=== PATIENT | female | born 1985 | race Caucasian/White ===

== ENCOUNTER 2020-09-24 13:50 | Emergency (ER) | payer MEDICAID ==
[~2020-09-24] VITALS: Ht 154.9 cm; Wt 59.0 kg
[2020-09-24 14:01] VITALS: BP_SYST 129
--- NOTE | 2020-09-24 14:57 | NUR ---
Patient triaged and placed in waiting room. VSS and patient appears in no acute distress at this time. Accompanied by self , awaiting available bed, and MD notified of need for MSE.
--- NOTE | 2020-09-24 14:58 | NUR ---
Pt brought by self , A&Ox4, pt presents to ER with swelling on L side of face states poss infection of tooth, pt afebrile, skin pink and war, cap refill <3.
[2020-09-24 15:38] VITALS: BP_SYST 129
--- NOTE | 2020-09-24 15:50 | NUR ---
Called pt x 1 , no answer
--- NOTE | 2020-09-24 16:00 | NUR ---
Called pt x 2 , no answer
--- NOTE | 2020-09-24 16:01 | NUR ---
Pt eloped from ER
== END 2020-09-24 16:01 | disposition left against medical advice (07) ==
LOC: SED 13:50
DX: R22.0 Localized swelling, mass and lump, head (principal); Z53.21 Procedure and treatment not carried out due to patient leaving prior to being seen by health care provider

== ENCOUNTER 2022-11-27 12:17 | Emergency (ER) | payer MEDICAID ==
[~2022-11-27] VITALS: Ht 170.2 cm; Wt 61.7 kg
--- NOTE | 2022-11-27 13:05 | NUR ---
Pt presents from home Chief complaint right greater toe pain. 05/19 Pt denies trauma pt states onset of pain 24 hours suspects "ingrown nail" Pt has pink and tender to the touch at greater right toe. Pt has cap refill less than 3 seconds.
[2022-11-27 13:09] VITALS: BP_SYST 114
[2022-11-27] MEDS ORDERED: KETOROLAC TROMETHAMINE 60 MG/2 ML VIAL IM ONE (13:30)
--- NOTE | 2022-11-27 13:30 | NUR ---
ER at bedside examining patient.
[2022-11-27] MEDS ORDERED: IBUP-1969 PO (13:39)
[2022-11-27] MEDS ORDERED: CEPH-548 PO (13:39)
--- NOTE | 2022-11-27 14:26 | NUR ---
Patient given written and verbal discharge instructions and verbalizes understanding. ER MD discussed with patient the results and treatment provided. Patient in stable condition. ID arm band removed. Rx of Cephalexin given. Patient educated on pain management and to follow up with PMD. Pain Scale 6/10. Opportunity for questions provided and answered. Medication side effect fact sheet provided.
[2022-11-27 14:27] VITALS: BP_SYST 114
== END 2022-11-27 14:00 | disposition home or self-care (01) ==
LOC: SED 12:17
DX: L03.031 Cellulitis of right toe (principal); M79.674 Pain in right toe(s); Z79.899 Other long term (current) drug therapy
CPT/HCPCS: 99283; 96372; J1885